=== PATIENT | male | born 1950 | race Caucasian/White ===

== ENCOUNTER → 2016-08-08 | Outpatient (CLI) | payer MEDICARE | LOC: GMAJ 10:59 | PROVIDERS: ATTEND Family Medicine | DX: R53.83 Other fatigue (principal); Z12.5 Encounter for screening for malignant neoplasm of prostate | CPT/HCPCS: 84403; G0103 ==

== ENCOUNTER → 2016-11-26 | Outpatient (CLI) | payer MEDICARE | END | disposition home or self-care (01) | LOC: GMAJ 12:30 | PROVIDERS: ATTEND Family Medicine | DX: M25.461 Effusion, right knee (principal) ==

== ENCOUNTER → 2017-10-22 | Outpatient (CLI) | payer MEDICARE | LOC: GMAJ 10:26 | PROVIDERS: ATTEND Family Medicine | DX: Z12.5 Encounter for screening for malignant neoplasm of prostate (principal) ==

== ENCOUNTER → 2018-03-23 | Outpatient (CLI) | payer MEDICARE, OTHER ==
--- NOTE | 2018-03-23 11:58 | MRI ---
EXAM DESCRIPTION: Lumbar Spine w/o Contrast CLINICAL HISTORY: SPINAL STENOSIS COMPARISON: None Available. TECHNIQUE: MRI of the lumbar spine is performed according to our usual protocol with axial and sagittal multi sequence imaging. FINDINGS: Sagittal T2 images reveal decreased signal intensity consistent with desiccation of the intervertebral discs at all lower thoracic and lumbar levels. Posterior annular bulges are most prominent at L2-3 and L3-4. No prevertebral mass or aneurysm. Lower cord and conus appear normal. Tip of the conus is behind the L1-2 level. Metal artifact from orthopedic hardware is seen at L4-S1 levels. Previous complete laminectomy is seen posterior to L5. Gel marker is seen dorsally at the L2-3 dorsal interspinous region. Sagittal T1 images reveal benign marrow signal characteristics. Hemangiomas are incidentally noted at L1 and L2. Modic type II changes are seen around degenerative L3-4 disc. There is grade 1 anterolisthesis of L3 on L4 which measures 7 mm with complete disc degeneration at this level. Normal T1 signal intensity and appearance of the lower cord and conus. Sagittal STIR images show mild increased signal intensity consistent with Modic type I changes around degenerated L2-3 disc. No paraspinous fluid collection or cystic lesion. Axial T1 and T2-weighted images were obtained to evaluate the disc levels. T12-L1: No posterior annular bulge or herniation. No spinal stenosis or neural foraminal narrowing. Facets appear hypertrophied with mild ligament flavum thickening. Normal appearance of the lower cord and conus. L1-2: Minimal posterior annular bulge without spinal stenosis or neural foraminal narrowing. Mild facet hypertrophy. L2-3: Moderate diffuse posterior annular bulge with mild to moderate spinal stenosis. The AP diameter of the spinal canal at this level is 1.15 cm. There is moderately severe left neural foraminal narrowing with milder neural foraminal narrowing on the right. Marked facet hypertrophy is seen with mild narrowing of subarticular recesses. L3-4: Moderately severe diffuse posterior annular bulge is seen in addition to uncovering of the posterior annulus due to anterolisthesis. There is moderate spinal stenosis with spinal canal measuring 1.35 cm in AP dimension and 0.5 cm in mediolateral width. There is severe bilateral neural foraminal narrowing and marked right worse than left subarticular recess narrowing. Marked facet hypertrophic changes are seen with significantly thickened ligamentum flavum. Metal artifact partly obscures the posterior elements related to pedicle screws at upper L4 level. L4-5: No posterior annular bulge or herniation at this fused disc level. No spinal stenosis or neural foraminal narrowing. Metal artifacts obscure the posterior elements. L5-S1: No posterior annular bulge or herniation at this fused disc level. No spinal stenosis or neural foraminal narrowing. Metal artifacts obscure the posterior elements. Posterior complete laminectomy is noted with small postoperative cyst consistent with seroma or old hematoma 2 cm x 0.7 cm. Sacrum appears intact. No retroperitoneal mass or aneurysm. IMPRESSION: Previous rubens and screw fixation of L4-S1. Degenerative anterolisthesis of L3 on L4 with complete disc degeneration, spinal stenosis and severe neural foraminal narrowing. Moderately severe diffuse posterior annular bulge at L2-3 with spinal stenosis and neural foraminal narrowing as described. Electronically signed by: Brenden Walters MD 03/23/2018 11:56 AM CDT
== END ==
LOC: MRI 08:29
PROVIDERS: ATTEND Family Medicine
DX: M48.062 Spinal stenosis, lumbar region with neurogenic claudication (principal); M51.26 Other intervertebral disc displacement, lumbar region; M51.36 Other intervertebral disc degeneration, lumbar region

== ENCOUNTER → 2019-12-30 | Outpatient (CLI) | payer MEDICARE, OTHER | LOC: GMAJ 10:41 | PROVIDERS: ATTEND Family Medicine | DX: Z12.5 Encounter for screening for malignant neoplasm of prostate (principal) ==

== ENCOUNTER 2020-05-25 05:18 | Day surgery (SDC) | payer MEDICARE, OTHER ==
[2020-05-25] MEDS ORDERED: diphenhydrAMINE HCL 50 MG/ML VIAL IV ONE (05:19)
[2020-05-25] MEDS ORDERED: DEXAMETHASONE INJ 10 MG/ML VIAL IV ONE (05:19)
[2020-05-25] MEDS ORDERED: MAGNESIUM SULFATE INJ 1 GM/2 ML VIAL IVPB ONE (05:19)
[2020-05-25] MEDS ORDERED: LIDOCAINE 1% 10 ML VIAL INJ ONE (05:19)
[2020-05-25] MEDS ORDERED: PROPOFOL 200 MG/20 ML VIAL IV ONE (05:19)
[2020-05-25] MEDS ORDERED: SODIUM CHLORIDE 0.9% 50 ML VIAL INJ ONE (05:19)
[2020-05-25] MEDS ORDERED: ceFAZolin SODIUM 1 GM VIAL IVPB ONE (05:19)
[2020-05-25] MEDS ORDERED: LACTATED RINGERS 1,000 ML ONE (06:37)
[2020-05-25] MEDS ORDERED: BUPIVACAINE 0.5% W/EPI 30 ML VIAL INJ ONE ×2 (08:28→10:47)
[2020-05-25] MEDS ORDERED: MIDAZOLAM INJ 2 MG/2 ML VIAL ONE (10:36)
[2020-05-25] MEDS ORDERED: fentaNYL CITRATE INJ 50 MCG/ML 2 ML AMP ONE (10:37)
[2020-05-25] MEDS ORDERED: FAMOTIDINE INJ 10 MG/ML VIAL IV ONE (10:37)
[2020-05-25] MEDS ORDERED: KETAMINE HCL 100 MG/ML VIAL ONE (10:38)
--- NOTE | 2020-05-25 11:25 | OP ---
DATE OF PROCEDURE: 05/25/20 PREOPERATIVE DIAGNOSIS: 1. Incarcerated umbilical hernia. POSTOPERATIVE DIAGNOSIS: 1. Incarcerated umbilical hernia. PROCEDURE: 1. Repair of incarcerated umbilical hernia. SURGEON: Vern Lira MD. ANESTHESIA: General and local, Seth Bueno CRNA. FINDINGS: There were two separate lobules of incarcerated fat at the small fascial defect, 1 cm or less. COMPLICATIONS: None. ESTIMATED BLOOD LOSS: Minimal. PLAN: Discharge. INDICATION: As stated. PROCEDURE: General anesthesia was induced. He was prepped and draped in sterile fashion. Local anesthesia was instilled both in the fascia and subcutaneous tissue. A supraumbilical incision was made. Subcutaneous tissues were taken down. We isolated the hernia, which was about 2.5 cm to 3 cm down to the fascia edge and ligated at its base. There was also another lobule going off right lateral that we identified and pulled out as well. It was coming from the same hole. In palpating the defect, it was subcentimetric. It was closed with a single 0 PDS suture. The wound was then close din two lays and a dressing was applied. He tolerated the procedure and was awakened and taken to Recovery to be discharged. #[id number] cc: Vern Garcia MD [facility]
[2020-05-25 13:15] VITALS: O2SAT 97
[2020-05-25 14:55] VITALS: BP 119/75; TEMP 97
== END 2020-05-25 12:45 | disposition home or self-care (01) ==
LOC: AMB 05:18
PROVIDERS: ATTEND Surgery
DX: K42.0 Umbilical hernia with obstruction, without gangrene (principal); I10 Essential (primary) hypertension; M19.90 Unspecified osteoarthritis, unspecified site; G89.29 Other chronic pain; M51.36 Other intervertebral disc degeneration, lumbar region; M48.061 Spinal stenosis, lumbar region without neurogenic claudication; K21.9 Gastro-esophageal reflux disease without esophagitis; Z91.040 Latex allergy status; Z88.8 Allergy status to other drugs, medicaments and biological substances; Z79.899 Other long term (current) drug therapy
CPT/HCPCS: 00830; 36415; 49587; 80048; 85025; 93005; A4216; J0690; J1100; J1200; J2250; J3010; J3475; J3490; J7120

== ENCOUNTER 2020-06-22 05:33 | Day surgery (SDC) | payer MEDICARE, OTHER ==
[2020-06-22] MEDS ORDERED: LACTATED RINGERS 1,000 ML ONE (06:52)
[2020-06-22] MEDS ORDERED: PROPOFOL 200 MG/20 ML VIAL IV ONE (07:00)
[2020-06-22] MEDS ORDERED: LIDOCAINE 1% 10 ML VIAL INJ ONE (07:00)
[2020-06-22 10:00] VITALS: BP 103/70; TEMP 99; O2SAT 96
--- NOTE | 2020-06-22 10:48 | OP ---
DATE OF PROCEDURE: 06/22/20 PREOPERATIVE DIAGNOSIS: 1. Screening colonoscopy. POSTOPERATIVE DIAGNOSIS: 1. Normal colon. 2. Mild diverticulosis. PROCEDURE: 1. Colonoscopy. SURGEON: Vern Lira MD ANESTHESIA: General, Seth Bueno CRNA. FINDINGS: As described. PROCEDURE: General anesthesia was induced in the lateral position. Digital rectal exam revealed one non-thrombosed external hemorrhoid. The scope was inserted and passed to the cecum with minimal difficulty. Upon withdrawal, the mucosal surfaces appeared normal. There were no polyps. There were a few diverticula in the sigmoid colon. The desufflated and the scope removed. Overall, a normal exam. He does have hemorrhoids that were not problematic. He will need another screening in 10 years and also depending on the recommendations at that time. #[id number] cc: Vern Garcia MD [facility]
== END 2020-06-22 10:08 | disposition home or self-care (01) ==
LOC: AMB 05:33
PROVIDERS: ATTEND Surgery
DX: Z12.11 Encounter for screening for malignant neoplasm of colon (principal); K57.30 Diverticulosis of large intestine without perforation or abscess without bleeding; K64.4 Residual hemorrhoidal skin tags; I10 Essential (primary) hypertension; K21.9 Gastro-esophageal reflux disease without esophagitis; G89.29 Other chronic pain; M19.90 Unspecified osteoarthritis, unspecified site; Z88.5 Allergy status to narcotic agent; Z79.899 Other long term (current) drug therapy
CPT/HCPCS: 00812; G0121; J3490; J7120